=== PATIENT | female | born 1985 | race African-American/Black ===

== ENCOUNTER 2025-06-22 12:55 | Emergency (ER) | payer SELFPAY ==
[~2025-06-22] VITALS: Ht 160 cm; Wt 105.0 kg
[2025-06-22 13:10] VITALS: O2SAT 99
[2025-06-22] MEDS ORDERED: LIDO-53 TP (14:58)
[2025-06-22] MEDS ORDERED: METH4TAB95 MT (14:58)
[2025-06-22] MEDS: KETOROLAC 30MG/ML VIAL IM ONE (15:58)
[2025-06-22] MEDS: LIDOCAINE 5% PATCH TOP SCH (16:02)
[2025-06-22 16:08] VITALS: BP 132/74; PULSE 76; RESP 16; TEMP 36.9; O2SAT 100
== END 2025-06-22 16:10 | disposition home or self-care (01) ==
LOC: ER 12:55
DX: G89.29 Other chronic pain (principal); M54.50 Low back pain, unspecified; Z88.1 Allergy status to other antibiotic agents
CPT/HCPCS: 81025; 96372; 99283; J1885; Z7610